=== PATIENT | male | born 1985 | race Caucasian/White ===

== ENCOUNTER 2021-06-25 10:13 | Outpatient (REF) | payer SELFPAY ==
[2021-06-25 10:44] LABS: Binax Internal Control QC Valid; Binax Lot number: 9864; Binax Now Covid-19 Ag Positive (Negative)
== END 2021-06-25 10:14 | disposition home or self-care (01) ==
LOC: HO.LAB 10:13
PROVIDERS: Visit Provider Internal Medicine
DX: Z20.822 Contact with and (suspected) exposure to COVID-19 (principal)
CPT/HCPCS: C9803

== ENCOUNTER 2021-07-01 13:46 | Outpatient (REF) | payer OTHER, SELFPAY ==
[2021-07-01 14:10] LABS: COVID-19 Test Positive (Negative)
== END 2021-07-01 13:47 | disposition home or self-care (01) ==
LOC: HO.LAB 13:46
PROVIDERS: Visit Provider Internal Medicine
DX: Z20.822 Contact with and (suspected) exposure to COVID-19 (principal)
CPT/HCPCS: 87635; C9803

== ENCOUNTER → 2024-10-24 07:50 | Outpatient (BNVA) | payer OTHER, SELFPAY | PROVIDERS: Visit Provider Physician Assistant Medical | DX: S50.01XA Contusion of right elbow, initial encounter (principal); S39.012A Strain of muscle, fascia and tendon of lower back, initial encounter; S93.492A Sprain of other ligament of left ankle, initial encounter; W30.9XXA Contact with unspecified agricultural machinery, initial encounter | CPT/HCPCS: 73080; 73610; 73630; 99204 ==

== ENCOUNTER → 2024-10-28 10:14 | Outpatient (BNVA) | payer OTHER, SELFPAY | PROVIDERS: Visit Provider Physician Assistant Medical | DX: S50.01XA Contusion of right elbow, initial encounter (principal); S39.012A Strain of muscle, fascia and tendon of lower back, initial encounter; S93.492A Sprain of other ligament of left ankle, initial encounter; W30.9XXA Contact with unspecified agricultural machinery, initial encounter | CPT/HCPCS: 29515; 99213 ==

== ENCOUNTER → 2024-10-31 08:59 | Outpatient (BNVA) | payer OTHER, SELFPAY | PROVIDERS: Visit Provider Physician Assistant Medical | DX: S93.492A Sprain of other ligament of left ankle, initial encounter (principal); W30.9XXA Contact with unspecified agricultural machinery, initial encounter | CPT/HCPCS: 99213 ==

== ENCOUNTER → 2024-11-14 13:32 | Outpatient (BNVA) | payer OTHER, SELFPAY | PROVIDERS: Visit Provider Physician Assistant Medical | DX: S50.01XD Contusion of right elbow, subsequent encounter (principal); S93.492D Sprain of other ligament of left ankle, subsequent encounter; V58.4XXD Person boarding or alighting a pick-up truck or van injured in noncollision transport accident, subsequent encounter; Z02.79 Encounter for issue of other medical certificate | CPT/HCPCS: 99213 ==